=== PATIENT | female | born 1985 | race Caucasian/White ===

== ENCOUNTER 2022-06-22 13:04 | Outpatient (CLI) | payer BC, SELFPAY ==
--- NOTE | 2022-06-22 13:00 | CRLHL7_ITS ---
For Patients: As a result of the Century Cures Act, medical imaging exams and procedure reports are released immediately into your electronic medical record. You may view this report before your referring provider. If you have questions, please contact your health care provider. INDICATION: Pelvic pain, hx endometriosis COMPARISON: 07/08/2018 TECHNIQUE: 2D resendiz scale and color Doppler images were acquired of the pelvis using a transabdominal and transvaginal approach. FINDINGS: Sonographic images demonstrate a normal size and smooth outer contour of the uterus. Uterus measures 7.9 cm in length by 4.4 cm in AP diameter by 5.7 cm in transverse dimension. The myometrium has a heterogeneous echotexture. The endometrial lining measures 10 mm in composite thickness. The ovaries are not visualized due to excess bowel gas in the pelvis. There are no suspicious fluid collections within the cul-de-sac. IMPRESSION: Heterogeneity of the uterine echotexture without leiomyoma. Endometrial thickness 1 cm. No endometrial fluid. Nonvisualization of the ovaries due to overlying bowel gas. Dictated by Zain Mayberry MD @ 06/23/2022 12:44:01 PM (Electronically Signed)
== END 2022-06-22 13:05 | disposition home or self-care (01) ==
LOC: US 13:05
PROVIDERS: Visit Provider Obstetrics & Gynecology
DX: N80.9 Endometriosis, unspecified (principal); R93.89 Abnormal findings on diagnostic imaging of other specified body structures; R10.2 Pelvic and perineal pain
CPT/HCPCS: 76830; 76856

== ENCOUNTER 2023-01-18 07:53 | Outpatient (CLI) | payer BC, SELFPAY ==
--- NOTE | 2023-01-18 08:15 | CRLHL7_ITS ---
For Patients: As a result of the Century Cures Act, medical imaging exams and procedure reports are released immediately into your electronic medical record. You may view this report before your referring provider. If you have questions, please contact your health care provider. CLINICAL HISTORY: FOLLOW UP, EVAL ENDOMETRIUM, HX ENDOMETRIOSIS TECHNIQUE: 2D resendiz scale and color Doppler images were acquired of the pelvis using a transvaginal approach. Comparison 06/22/2022 FINDINGS: On transvaginal imaging, the myometrium has a normal uniform echotexture. The uterus measures 7.9 x 3.6 x 3.5 cm. No uterine fibroid. The endometrium measures 7.1 millimeters. No endometrial fluid. The left ovary measures 3.1 x 1.7 x 1.9 cm in size and the right ovary measures 4.0 x 1.8 x 1.7 cm. The ovaries demonstrate normal arterial and venous blood flow on color Doppler analysis. Trace pelvic free fluid is present. Mildly prominent pelvic vascularity noted. IMPRESSION: The endometrium measures 7.1 millimeters. No endometrial fluid. No uterine fibroids. No endometrioma. Dictated by Zain Mayberry MD @ 01/18/2023 10:39:00 AM (Electronically Signed)
== END 2023-01-18 07:54 | disposition home or self-care (01) ==
LOC: US 07:53
PROVIDERS: Visit Provider Obstetrics & Gynecology
DX: R10.2 Pelvic and perineal pain (principal)
CPT/HCPCS: 76830